=== PATIENT | male | born 1955 | race Hispanic/Latino ===

== ENCOUNTER 2020-02-22 04:33 | Emergency (ER) | payer MEDICARE ==
[~2020-02-22] VITALS: Ht 165.1 cm; Wt 75.7 kg
[2020-02-22] MEDS ORDERED: LIDOCAINE JELLY 2% 10ML URO-JET TOP ONE (05:00)
--- NOTE | 2020-02-22 05:12 | Emergency Department Note ---
History of Present Illnes History of Present Illness Chief Complaint: Genitourinary History of Present Illness This is a 64 year old male states he has not been able to urinate for about 2-3 hours. Patient states he was told 3 months ago he did have an enlarged prostate. Patient visibly uncomforable. 721 mL noted on bladder scan. STATES LAST URINATED AT 9PM. Historian: Patient Arrival Mode: Car Onset (how long ago): hour(s) (3) Location: LOWER ABD Quality: PAIN Radiation: Reports non-radiation Severity: moderate Onset quality: gradual Duration (how long): hour(s) (3) Timing of current episode: constant Progression: worsening Chronicity: new Context: Reports other (H/O ENLARGED PROSTATE); Denies recent illness, Denies recent surgery, Denies trauma/injury Exacerbating factors: none Associated symptoms: Reports denies other symptoms Past Medical/Family History Physician Review I have reviewed the patient's past medical and family history. Any updates have been documented here. Past Medical History Recent Fever: No Clinical Suspicion of Infectio: No New/Unexplained Change in Ment: No Other Medical History: enlarged prostate Social History Smoking Cessation: Never Smoker Alcohol Use: Occasional Any Illegal Drug Use: No Family History Family history of heart diseas: No Review of Systems Review of Systems Constitutional: Reports no symptoms EENTM: Reports no symptoms Cardiovascular: Reports no symptoms Respiratory: Reports no symptoms Gastrointestinal: Reports no symptoms Genitourinary: Reports as per HPI Musculoskeletal: Reports no symptoms Integumentary: Reports no symptoms Neurological: Reports no symptoms Psychological: Reports no symptoms Endocrine: Reports no symptoms Hematological/Lymphatic: Reports no symptoms Physical Exam Related Data Allergies: Coded Allergies: No Known Allergies (Unverified , 02/22/20) Triage Vital Signs Vital Signs Date Time Temp Pulse Resp B/P (MAP) Pulse Ox O2 Delivery O2 Flow Rate FiO2 02/22/20 04:33 98.7 131 22 177/112 99 Room Air Physical Exam CONSTITUTIONAL Constitutional: Present well-developed, Present well-nourished, Present distressed (MODERATE) HENT HENT: Present normocephalic, Present atraumatic, Present oropharynx clear/moist, Present nose normal HENT L/R: Present left ext ear normal, Present right ext ear normal EYES Eyes: Reports PERRL, Reports conjunctivae normal NECK Neck: Present ROM normal PULMONARY Pulmonary: Present effort normal, Present breath sounds normal CARDIOVASCULAR Cardiovascular: Present regular rhythm, Present heart sounds normal, Present capillary refill normal, Present tachycardia (112) GASTROINTESTINAL Abdominal: Present soft, Present bowel sounds normal, Present tender (SUPP RAPUBIC), Present other (BLADDER DISTENDED) GENITOURINARY Genitourinary: Present exam deferred SKIN Skin: Present warm, Present dry MUSCULOSKELETAL Musculoskeletal: Present ROM normal NEUROLOGICAL Neurological: Present alert, Present oriented x 3, Present no gross motor or sensory deficits PSYCHOLOGICAL Psychological: Present mood/affect normal, Present judgement normal Assessment & Plan Medical Decision Making MDM PT WITH URINARY RETENTION BLADDER SCAN SHOW 721 CC URINE IN BLADDER MARQUIS CATHETER ORDERED, UA ORDERED TO EVAL FOR UTI, EXACT AMOUNT OF URINE RETAINED IN BLADDER Reassessment Reassessment time: 05:15 Reassessment PT FEELS MUCH BETTER, LOWER ABD DISCOMFORT RESOLVED 750 CC URINE OUTPUT AFTER MARQUIS PLACED Assessment & Plan Final Impression: (1) Urinary retention due to benign prostatic hyperplasia Depart Disposition: HOME, SELF-CARE Last Vital Signs Date Time Temp Pulse Resp B/P (MAP) Pulse Ox O2 Delivery O2 Flow Rate FiO2 02/22/20 04:49 118 20 167/105 98 Room Air 02/22/20 04:33 98.7 Medications in the ED Lidocaine HCl 10 ml ONCE ONCE TOP ; Start 02/22/20 at 05:00; Stop 02/22/20 at 05:01 GRACE BERGER MD Feb 22, 2020 05:12
[2020-02-22 05:18] LABS: CLARITY,URINE CLEAR (CLEAR); COLOR,URINE YELLOW (YELLOW); KETONES,URINE NEGATIVE (NEGATIVE); LEUKOCYTE ESTERASE ,URINE NEGATIVE (NEGATIVE); NITRITE,URINE NEGATIVE (NEGATIVE); PROTEIN,URINE DIPSTICK 1+ (NEGATIVE); URINE UROBILINOGEN 0.2 mg/dL (0.2 - 1)
[2020-02-22 05:19] LABS: BILIRUBIN,URINE NEGATIVE (NEGATIVE)
--- NOTE | 2020-02-22 05:20 | NUR ---
750 mL of urine noted when Engle catheter placed.
--- NOTE | 2020-02-22 05:22 | NUR ---
Patient states he feels better post yates placement
[2020-02-22 05:35] VITALS: BP 124/79
[2020-02-22 05:40] LABS: BACTERIA,URINE RARE /HPF; EPITHELIAL CELLS,URINE RARE /LPF; MUCUS,URINE RARE (RARE); RBC,URINE 0-5 /HPF (0-5); WBC,URINE (MAN) 0-5 /HPF (0-5)
--- OUTSIDE RECORDS SUMMARY | 2020-02-22 10:55 | XMS REPORT | Clinical Summary ---
Author Author [facility] Organization [facility] Address Unknown Phone Unavailable Care Team Providers Care Protective Service Specialist Name Role Phone PCP Unavailable Allergies No Known Allergies Medications Not on file Active Problems Not on file Social History Date Tobacco Use Types Packs/Day Years Used Never Assessed Sex Assigned at Date Recorded Not on file Industry Job Start Date Occupation Not on file Not on file Not on file Travel End Travel History Travel Start No recent travel history available. Last Filed Vital Signs Not on file Plan of Treatment Health Maintenance Due Date Last Done Comments Colorectal Cancer Scrn 2004 Annual (FIT/FOBT) Age 50 to 75 IMM Pneumococcal Age 65 2019 and Up IMM Influenza Seasonal 03/06/2020 Oct to August (>/= 19 yrs) Results Not on fileafter 02/21/2019
--- OUTSIDE RECORDS SUMMARY | 2020-02-22 10:55 | XMS REPORT | Continuity of Care Document ---
Author Author [facility] t Organization [facility] Address [address] [place] [address] Phone Unavailable Care Team Providers Care Conduit Bender Name Role Phone Unavailable Unavailable Problems This patient has no known problems. Allergies, Adverse Reactions, Alerts This patient has no known allergies or adverse reactions. Social History Social Habit Start Date Stop Date Quantity Comments Source Sex Assigned At [facility] Medications This patient has no known medications. Procedures This patient has no known procedures. Plan of Care Planned Activity Planned Date Details Comments Source Future Scheduled Test 2020-03-06 00:00:00 IMM Influenza Seas onal Mar to August (>/= 19 yrs) [code = IMM Influenza Seasonal Mar to August (>/= 19 yrs)] [facility] Scheduled Test 2019 00:00:00 IMM Pneumococcal A ge 65 and Up [code = IMM Pneumococcal Age 65 and Up] [facility] Scheduled Test 2004 00:00:00 Screening for noris gnant neoplasm of colon (procedure) [code = 784876831] [facility] Encounters Start Date/Time End Date/Time Encounter Type Admission Type [facility] Care Department Encounter ID Source 2019-04-12 00:00:00 2019-04-12 00:00:00 Outpatient [facility] [id number] [facility] 2018-11-13 15:25:15 2018-11-13 15:25:15 Emergency [facility] [id number] [facility] 2018-11-13 14:05:36 2018-11-13 14:05:36 Emergency [facility] [id number] [facility] Results This patient has no known results.
== END 2020-02-22 05:44 | disposition home or self-care (01) ==
LOC: ER 05:29
DX: N40.1 Benign prostatic hyperplasia with lower urinary tract symptoms (principal)
CPT/HCPCS: 51700; 81001; 99283

== ENCOUNTER 2020-02-23 18:04 | Emergency (ER) | payer MEDICARE ==
[~2020-02-23] VITALS: Ht 165.1 cm; Wt 75.7 kg
--- NOTE | 2020-02-23 19:03 | Emergency Department Note ---
History of Present Illnes History of Present Illness Chief Complaint: Genitourinary History of Present Illness This is a 64 year old male arrives to the ED because he noticed leakage around his Engle catheter site. Upon arrival leakage resolved. Patient had a Engle catheter placed last week it PMC for urinary retention Historian: Patient Arrival Mode: Car Onset (how long ago): day(s) Onset quality: sudden Timing of current episode: constant Progression: resolved Chronicity: new Relieving factors: none Exacerbating factors: none Past Medical/Family History Physician Review I have reviewed the patient's past medical and family history. Any updates have been documented here. Past Medical History Recent Fever: No Clinical Suspicion of Infectio: No New/Unexplained Change in Ment: No Other Medical History: Prostate Problems, Catheter inserted during last visit 02/21/20 here in ED Past Surgical History: None Social History Smoking Cessation: Never Smoker Counseling Performed: No Alcohol Use: Social Other Any Pre-Existing Lines (PICC,: No Review of Systems Review of Systems Constitutional: Reports no symptoms EENTM: Reports no symptoms Cardiovascular: Reports no symptoms Respiratory: Reports no symptoms Gastrointestinal: Reports no symptoms Genitourinary: Reports as per HPI Musculoskeletal: Reports no symptoms Integumentary: Reports no symptoms Neurological: Reports no symptoms Psychological: Reports no symptoms Endocrine: Reports no symptoms Hematological/Lymphatic: Reports no symptoms Physical Exam Related Data Allergies: Coded Allergies: No Known Allergies (Unverified , 02/22/20) Triage Vital Signs Vital Signs Date Time Temp Pulse Resp B/P (MAP) Pulse Ox O2 Delivery O2 Flow Rate FiO2 02/23/20 18:18 98.9 84 18 156/85 100 Room Air Vital signs reviewed: Yes Physical Exam CONSTITUTIONAL Constitutional: Present well-developed, Present well-nourished HENT HENT: Present normocephalic, Present atraumatic, Present oropharynx clear/moist, Present nose normal HENT L/R: Present left ext ear normal, Present right ext ear normal EYES Eyes: Reports PERRL, Reports conjunctivae normal NECK Neck: Present ROM normal PULMONARY Pulmonary: Present effort normal, Present breath sounds normal CARDIOVASCULAR Cardiovascular: Present regular rhythm, Present heart sounds normal, Present capillary refill normal, Present normal rate GASTROINTESTINAL Abdominal: Present soft, Present nontender, Present bowel sounds normal GENITOURINARY Genitourinary: Present penis normal SKIN Skin: Present warm, Present dry MUSCULOSKELETAL Musculoskeletal: Present ROM normal NEUROLOGICAL Neurological: Present alert, Present oriented x 3, Present no gross motor or sensory deficits PSYCHOLOGICAL Psychological: Present mood/affect normal, Present judgement normal Assessment & Plan Medical Decision Making MDM 64-year-old male arrives the ED with all this was Engle catheter, Engle catheter changed, drainage noted. Urinalysis revealed UTI. Patient discharged home on antibiotics outpatient urology follow-up. Assessment & Plan Final Impression: (1) Urinary retention due to benign prostatic hyperplasia Depart Disposition: HOME, SELF-CARE Last Vital Signs Date Time Temp Pulse Resp B/P (MAP) Pulse Ox O2 Delivery O2 Flow Rate FiO2 02/23/20 18:18 98.9 84 18 156/85 100 Room Air KING NICHOLE DO Feb 23, 2020 19:03
--- NOTE | 2020-02-23 19:10 | NUR ---
pt reports that urine leaking around catheter. md informed, md ordered to exchange catheter. present catheter dc'd, pt noted c 18fr coude catheter, catheter noted intact. pt cleaned and prepped using sterile technique. 18 fr coude reinserted. 35 cc hazy yellow urine return noted. md informed of hazy urine. ua/uc ordered. specimen collected from prot and sent to lab.
[2020-02-23 19:52] LABS: CLARITY,URINE HAZY (CLEAR); COLOR,URINE YELLOW (YELLOW); KETONES,URINE NEGATIVE (NEGATIVE); LEUKOCYTE ESTERASE ,URINE TRACE (NEGATIVE); NITRITE,URINE NEGATIVE (NEGATIVE); PROTEIN,URINE DIPSTICK 2+ (NEGATIVE); URINE UROBILINOGEN 0.2 mg/dL (0.2 - 1)
[2020-02-23 19:53] LABS: BACTERIA,URINE MODERATE /HPF; BILIRUBIN,URINE NEGATIVE (NEGATIVE); EPITHELIAL CELLS,URINE FEW /LPF; RBC,URINE >50 /HPF (0-5)
[2020-02-23 20:19] VITALS: BP 123/87
--- OUTSIDE RECORDS SUMMARY | 2020-03-02 14:13 | XMS REPORT | Continuity of Care Document ---
Author Author [facility] t Organization [facility] Address [address] [place] [address] Phone Unavailable Care Team Providers Care Rig Builder Name Role Phone NONSTAFF PCP Unavailable Payers Payer Name Policy Type Policy Number Effective Date Expiration Date Darrin red Medicare A & B [id number] [facility] Problems Condition Name Condition Details Condition Category Status Onset Date Resolution Date Last Treatment Date Treating Clinician Comments Source Urinary retention due to benign prostatic hyperplasia Problem Ac tive [facility] Allergies, Adverse Reactions, Alerts This patient has no known allergies or adverse reactions. Social History Social Habit Start Date Stop Date Quantity Comments Source Sex Assigned At [facility] Medications This patient has no known medications. Vital Signs Vital Name Observation Time Observation Value Comments Source Body Temperature 2020-02-23 20:19:00 98.5 [degF] [facility] Weight 2020-02-23 18:18:00 167 [lb_av] [facility] BMI (Body Mass Index) 2020-02-23 18:18:00 27.8 kg/m2 [facility] Procedures This patient has no known procedures. Plan of Care Planned Activity Planned Date Details Comments Source Future Scheduled Test 2020-03-06 00:00:00 IMM Influenza Seas onal Mar to August (>/= 19 yrs) [code = IMM Influenza Seasonal Mar to August (>/= 19 yrs)] [facility] Scheduled Test 2019 00:00:00 IMM Pneumococcal A ge 65 and Up [code = IMM Pneumococcal Age 65 and Up] [facility] Scheduled Test 2004 00:00:00 Screening for noris gnant neoplasm of colon (procedure) [code = 519067583] Located Within [facility] Instructions Engle Catheter Care [facility] Encounters Start Date/Time End Date/Time En[facility] Encounter ID Source 2020-02-23 18:20:00 2020-02-23 20:33:00 Departed Emergency Room [facility] [id number] [facility] Patients [facility] 2020-02-22 05:29:00 2020-02-22 05:44:00 Departed Emergency Room [facility] [id number] [facility] Patients [facility] 2019-04-12 00:00:00 2019-04-12 00:00:00 Outpatient [facility] [id number] [facility] 2018-11-13 15:25:15 2018-11-13 15:25:15 Emergency [facility] [id number] [facility] 2018-11-13 14:05:36 2018-11-13 14:05:36 Emergency [facility] [id number] Located [facility] Results Test Description Test Time Test Comments Results Result Comments Source Urine color determination 2020-02-23 19:10:00 Test Item Urine Color (test code = 5778-6) YELLOW YELLOW [facility] [id number] 19:10:00* Test Item Value Reference Range Interpretation Comments Urine Clarity (test code = 96370-2) [facility] Test strip 2020-02-23 19:10:00* Test Item Value Reference Range Interpretation Comments Urine Specific [place] (test code = 5811-5) 1.020 1.010-1.02 5 [facility] measurement by automated test [id number] 19:10:00* Test Item Value Reference Range Interpretation Comments Urine pH (test code = 98688-2) 6.5 5-7 [facility] leukocyte esterase detection by [id number] 19:10:00* Test Item Value Reference Range Interpretation Comments Urine Leukocyte Esterase (test code = 5799-2) TRACE NEGATIVE [facility] nitrite [id number] 19:10:00* Test Item Value Reference Range Interpretation Comments Urine Nitrite (test code = 03281-4) NEGATIVE NEGATIVE [facility] protein measurement by test strip (mass/volume)2020-02-23 19:10:00* Test Item Value Reference Range Interpretation Comments Urine Protein (test code = 5804-0) 2+ NEGATIVE [facility] glucose [id number] 19:10:00* Test Item Value Reference Range Interpretation Comments Urine Glucose (UA) (test code = 2349-9) NEGATIVE NEGATIVE [facility] ketones detection by automated test [id number] 19:10:00* Test Item Value Reference Range Interpretation Comments Urine Ketones (test code = 85448-5) NEGATIVE NEGATIVE [facility] urobilinogen measurement by test strip (mass/volume)2020-02-23 19:10:00* Test Item Value Reference Range Interpretation Comments Urine Urobilinogen (test code = 70714-1) 0.2 0.2-1 [facility] total bilirubin measurement (mass/volume)2020-02-23 19:10:00* Test Item Value Reference Range Interpretation Comments Urine Bilirubin (test code = 1978-6) NEGATIVE NEGATIVE [facility] erythrocytes [id number] 19:10:00* Test Item Value Reference Range Interpretation Comments Urine Blood (test code = 33546-1) MODERATE NEGATIVE [facility] sediment leukocyte count by microscopy (number/high power field)2020-02-23 19:10:00* Test Item Value Reference Range Interpretation Comments Urine WBC (test code = 5821-4) 6-10 0-5 [facility] detection in urine sediment by light [id number] 19:10:00* Test Item Value Reference Range Interpretation Comments Urine RBC (test code = 08856-9) >50 0-5 [facility] detection in urine sediment by light [id number] 19:10:00* Test Item Value Reference Range Interpretation Comments Urine Bacteria (test code = 24342-3) MODERATE NONE [facility] Clinic[facility]pit[facility] cells detection in urine sediment by light [id number] 19:10:00* Test Item Value Reference Range Interpretation Comments Urine Epithelial Cells (test code = 13482-6) FEW NONE [facility] ClinicMucus detection in urine sediment by light [id number] 04:55:00* Test Item Value Reference Range Interpretation Comments Urine Mucus (test code = 8247-9) RARE RARE [facility]
--- OUTSIDE RECORDS SUMMARY | 2020-03-02 14:13 | XMS REPORT | Clinical Summary ---
Author Author [facility] Organization [facility] Address Unknown Phone Unavailable Care Team Providers Care Pet Feeder Name Role Phone PCP Unavailable Allergies No [...] (>/= 19 yrs) Results Not on fileafter 02/22/2019
== END 2020-02-23 20:33 | disposition home or self-care (01) ==
LOC: ER 18:20
DX: N40.1 Benign prostatic hyperplasia with lower urinary tract symptoms (principal)
CPT/HCPCS: 51700; 81001; 87086; 99283